=== PATIENT | male | born 1995 | race Caucasian/White ===

== ENCOUNTER 2017-12-11 18:22 | Inpatient (IN) ==
[2017-12-11 18:47] LABS: Bilirubin,Urine Negative (Negative); Blood,Urine Negative (Negative); Clarity,Urine Clear (Clear); Color,Urine Yellow (Yellow); Glucose,Urine (UA) Normal (Normal); Ketones,Urine Negative (Negative); Leukocyte Esterase,Urine Negative (Negative); Nitrite,Urine Negative (Negative); Protein,Urine Negative (Neg-Trace); Specific Gravity,Urine 1.012 (1.010-1.025); Urobilinogen,Urine Normal (Normal)
[2017-12-11 18:49] LABS: Basophils # 0.1 K/mcL (0.0-0.2); Basophils % 0.6 %; Eosinophils # 0.2 K/mcL (0.0-0.6); Eosinophils % 1.6 %; Hematocrit 41.8 % (37.5-50.1); Hemoglobin 14.8 g/dL (12.9-16.9); Immature Granulocytes % 0.3 % (0-4); Lymphocytes # 1.1 K/mcL (0.6-4.6); Lymphocytes % 8.8 %; Mean Corpuscular HGB Conc 35.4 g/dL (31.6-35.5); Mean Corpuscular Hemoglobin 30.6 pg (28.0-33.3); Mean Corpuscular Volume 86.5 fL (83.0-100.0); Mean Platelet Volume 9.1 fL (9.4-12.4); Monocytes # 0.3 K/mcL (0.0-1.3); Monocytes % 2.7 %; Neutrophils # 10.6 K/mcL (1.6-8.9); Platelet Count 224 K/mcL (140-400); Red Blood Count 4.83 M/mcL (4.19-5.50); Red Cell Distribution Width 12.3 % (11.5-14.5)
[2017-12-11 18:59] LABS: Amphetamine Screen,Urine Negative ng/mL (Cutoff=1000); Barbiturate Screen,Urine Negative ng/mL (Cutoff=200); Benzodiazepines Screen,Urine Negative ng/mL (Cutoff=200); Cannabinoid Screen,Urine Negative ng/mL (Cutoff = 50); Cocaine Screen,Urine Negative ng/mL (Cutoff= 300); Opiate Screen,Urine Negative ng/mL (Cutoff=300); Phencyclidine Screen,Urine Negative ng/mL (Cutoff=25)
[2017-12-11 19:09] LABS: Acetaminophen < 10 mcg/mL (10-20); BUN/Creatinine Ratio 8 (6-26); Blood Urea Nitrogen 8 mg/dL (6-20); Calcium 9.6 mg/dL (8.6-10.3); Carbon Dioxide 30 mEq/L (23-29); Chloride 103 mEq/L (98-107); Ethanol < 10 mg/dL (Less than 10); Glucose 108 mg/dL (70-105); Osmolality,Calculated 287 (280-300); Potassium 4.1 mEq/L (3.5-5.1); Salicylate < 2.5 mg/dL (15.0-30.0); Sodium 139 mEq/L (136-145); eGFR For African Americans > 60 (> 60); eGFR For Non-African Americans > 60 (> 60)
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
--- NOTE | 2017-12-11 22:09 | Emergency Department Note ---
Disposition Clinical Impression: Suicidal ideation Depression Qualifiers: Depression Type: unspecified Qualified Code(s): F32.9 - Major depressive disorder, single episode, unspecified Disposition: Transfer Psychiatric Hosp Condition: Good Referrals: Chasity Frye MD [Primary Care Provider] - General Adult HPI - General Chief complaint: ED Psychiatric Symptoms Stated complaint: SI Time Seen by Provider: 12/11/17 18:31 Source: patient, family Mode of arrival: ambulatory Limitations: no limitations - History of Present Illness Pain Scale: 7 - Related Data Previous Rx's Medication Instructions Recorded Ondansetron ODT [Zofran ODT] 4 mg SL Q8HR PRN #16 tab.rapdis 07/31/15 Amoxicillin 875 mg PO BID #20 tablet 11/02/15 DiphenhydraMINE [Benadryl] 25 mg PO Q6HR PRN #20 capsule 11/02/15 GuaiFENesin ER [Mucinex] 1,200 mg PO BID #20 tbbp.12hr 11/02/15 Allergies Allergy/AdvReac Type Severity Reaction Status Date / Time No Known Allergies Allergy Verified 11/02/15 15:26 Cardiovascular: Denies: chest pain Respiratory: Denies: dyspnea Psychiatric: Reports: anxiety, depression, suicidal thoughts. Denies: homicidal thoughts, auditory hallucinations, visual hallucinations Past Medical History - Past Medical History Medical history: Reports: no medical history, other Surgical history: Reports: no surgical history Psychiatric history: Reports: anxiety, depression - Social History Smoking Status: Current every day smoker Smokeless Tobacco Status: Yes Alcohol use: Reports: none Drug use: Reports: none Physical Exam - General Limitations: no limitations General appearance: alert, in no apparent distress Course Vital Signs Temperature 98.7 F 12/11/17 18:35 Pulse Rate 77 12/11/17 18:35 Respiratory Rate 16 12/11/17 18:35 Blood Pressure 116/73 12/11/17 18:35 O2 Sat by Pulse Oximetry 97 12/11/17 18:35 Temperature 98.7 F 12/11/17 18:35 Pulse Rate 77 12/11/17 18:35 Respiratory Rate 16 12/11/17 18:35 Blood Pressure 116/73 12/11/17 18:35 O2 Sat by Pulse Oximetry 97 12/11/17 18:35 Oxygen Delivery Oxygen Delivery Room Air Medical Decision Making - Lab Data Result diagrams: 12/11/17 18:40 12/11/17 18:40 Lab Results 12/11/17 12/11/17 12/11/17 Range/Units 18:35 18:35 18:40 WBC 12.3 H (4.3-11.1) K/mcL RBC 4.83 (4.19-5.50) M/mcL Hgb 14.8 (12.9-16.9) g/dL Hct 41.8 (37.5-50.1) % MCV 86.5 (83.0-100.0) fL MCH 30.6 (28.0-33.3) pg MCHC 35.4 (31.6-35.5) g/dL RDW 12.3 (11.5-14.5) % Plt Count 224 (140-400) K/mcL MPV 9.1 L (9.4-12.4) fL Immature Gran % 0.3 (0-4) % Seg Neutrophils % 86.0 % Lymphocytes % 8.8 % Monocytes % 2.7 % Eosinophils % 1.6 % Basophils % 0.6 % Neutrophils # 10.6 H (1.6-8.9) K/mcL Lymphocytes # 1.1 (0.6-4.6) K/mcL Monocytes # 0.3 (0.0-1.3) K/mcL Eosinophils # 0.2 (0.0-0.6) K/mcL Basophils # 0.1 (0.0-0.2) K/mcL Sodium (136-145) mEq/L Potassium (3.5-5.1) mEq/L Chloride (98-107) mEq/L Carbon Dioxide (23-29) mEq/L BUN (6-20) mg/dL Creatinine (0.70-1.30) mg/dL Est GFR ( Amer) (> 60) Est GFR (Non-Af Amer) (> 60) BUN/Creatinine Ratio (6-26) Glucose (70-105) mg/dL Calculated Osmolality (280-300) Calcium (8.6-10.3) mg/dL Urine Color Yellow (Yellow) Urine Clarity Clear (Clear) Urine pH 7.0 (5.0-8.0) pH Units Ur Specific [place] 1.012 (1.010-1.025) Urine Protein Negative (Neg-Trace) mg/dL Urine Glucose (UA) Normal (Normal) mg/dL Urine Ketones Negative (Negative) mg/dL Urine Blood Negative (Negative) Urine Nitrite Negative (Negative) Urine Bilirubin Negative (Negative) Urine Urobilinogen Normal (Normal) mg/dL Ur Leukocyte Esterase Negative (Negative) Salicylates (15.0-30.0) mg/dL Urine Opiates Screen Negative (Zvlwit=324) ng/mL Acetaminophen (10-20) mcg/mL Ur Barbiturates Screen Negative (Sxcdpv=626) ng/mL Ur Phencyclidine Scrn Negative (Cutoff=25) ng/mL Ur Amphetamines Screen Negative (Ehymag=2793) ng/mL U Benzodiazepines Scrn Negative (Tzolyq=966) ng/mL Urine Cocaine Screen Negative (Cutoff= 300) ng/mL U Marijuana (THC) Screen Negative (Cutoff = 50) ng/mL Ethyl Alcohol (Less than 10) mg/dL 12/11/17 Range/Units 18:40 WBC (4.3-11.1) K/mcL RBC (4.19-5.50) M/mcL Hgb (12.9-16.9) g/dL Hct (37.5-50.1) % MCV (83.0-100.0) fL MCH (28.0-33.3) pg MCHC (31.6-35.5) g/dL RDW (11.5-14.5) % Plt Count (140-400) K/mcL MPV (9.4-12.4) fL Immature Gran % (0-4) % Seg Neutrophils % % Lymphocytes % % Monocytes % % Eosinophils % % Basophils % % Neutrophils # (1.6-8.9) K/mcL Lymphocytes # (0.6-4.6) K/mcL Monocytes # (0.0-1.3) K/mcL Eosinophils # (0.0-0.6) K/mcL Basophils # (0.0-0.2) K/mcL Sodium 139 (136-145) mEq/L Potassium 4.1 (3.5-5.1) mEq/L Chloride 103 (98-107) mEq/L Carbon Dioxide 30 H (23-29) mEq/L BUN 8 (6-20) mg/dL Creatinine 0.96 (0.70-1.30) mg/dL Est GFR ( Amer) > 60 (> 60) Est GFR (Non-Af Amer) > 60 (> 60) BUN/Creatinine Ratio 8 (6-26) Glucose 108 H (70-105) mg/dL Calculated Osmolality 287 (280-300) Calcium 9.6 (8.6-10.3) mg/dL Urine Color (Yellow) Urine Clarity (Clear) Urine pH (5.0-8.0) pH Units Ur Specific [place] (1.010-1.025) Urine Protein (Neg-Trace) mg/dL Urine Glucose (UA) (Normal) mg/dL Urine Ketones (Negative) mg/dL Urine Blood (Negative) Urine Nitrite (Negative) Urine Bilirubin (Negative) Urine Urobilinogen (Normal) mg/dL Ur Leukocyte Esterase (Negative) Salicylates < 2.5 L (15.0-30.0) mg/dL Urine Opiates Screen (Cseyiy=898) ng/mL Acetaminophen < 10 L (10-20) mcg/mL Ur Barbiturates Screen (Xbziyx=945) ng/mL Ur Phencyclidine Scrn (Cutoff=25) ng/mL Ur Amphetamines Screen (Pqmawc=3798) ng/mL U Benzodiazepines Scrn (Awgkyr=565) ng/mL Urine Cocaine Screen (Cutoff= 300) ng/mL U Marijuana (THC) Screen (Cutoff = 50) ng/mL Ethyl Alcohol < 10 (Less than 10) mg/dL Attestation Statement - Attestation Attestation: I examined this patient and my medical decision-making was reviewed with the Resident Physician, Dr. Tee. I agree with the documented findings, disposition and treatment plan as described except to the extent set forth below. Patient is a 22-year-old white male with history of depression and anxiety management and outpatient who presents to emergency department today with reported suicidal ideation. Patient has no prior psychiatric hospitalizations and had been on medication for his depression and anxiety which she stopped approximately one year ago to unpleasant side effects. Patient is not currently in any outpatient counseling or therapy. Patient is reporting that he will make attempts to stab himself as plan. I agree with patient's physical exam findings as documented. Vital signs are stable and patient's in no acute distress. Actions were instituted, lab panel was performed as well as urinalysis. Patient 's labs show mild elevation in white count but otherwise within normal limits. Negative tox screen and EtOH. [facility] slip was signed and placed on the patient's chart due to lethality and patient was medically cleared. [facility] was consulate to see the patient. After their evaluation they feel the patient would benefit from inpatient treatment. Patient will be admitted to the [facility] service.
[2017-12-11] MEDS ORDERED: MOM Conc 10 ML UD.LIQ PO PRN (22:43)
[2017-12-11] MEDS ORDERED: hydrOXYzine pamoate 25 MG CAPSULE PO PRN (22:43)
[2017-12-11] MEDS ORDERED: Acetaminophen 325 MG TABLET PO PRN (22:43)
[2017-12-11] MEDS ORDERED: traZODone 50 MG TABLET PO PRN (22:43)
[2017-12-11] MEDS ORDERED: *HR* LORazepam 2 MG/ML VIAL IM PRN (22:43)
[2017-12-11] MEDS ORDERED: *HR* LORazepam 1 MG TABLET PO PRN (22:43)
[2017-12-11] MEDS ORDERED: Haloperidol Lactate 5 MG/ML VIAL IM PRN (22:43)
[2017-12-11] MEDS ORDERED: Mag Hydrox/Al Hydrox/Simeth 30 ML UDC PO PRN (22:43)
[2017-12-11] MEDS ORDERED: Nicotine 2 MG GUM BC PRN (23:49)
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
[2017-12-12] MEDS: Aspirin Enteric Coated 81 MG Tablet PO SCH (13:45)
[2017-12-12] MEDS: FLUOXETINE HCL 20 MG PO SCH (17:46)
[2017-12-12] MEDS: OLANZAPINE 5 MG PO SCH (17:46)
[2017-12-13] MEDS: Aspirin Enteric Coated 81 MG Tablet PO SCH (08:58)
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
[2017-12-13] MEDS: OLANZAPINE 5 MG PO SCH (17:41)
[2017-12-13] MEDS: FLUOXETINE HCL 20 MG PO SCH (17:41)
[2017-12-14 08:22] VITALS: BP 114/71
[2017-12-14] MEDS: Aspirin Enteric Coated 81 MG Tablet PO SCH (08:30)
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
== END 2017-12-14 10:41 | disposition home or self-care (01) | DRG 751 ==
LOC: EMEROO 18:22 → SUATTDRO 22:36 → 1ANU 22:36
PROVIDERS: ADMIT Psychiatry & Neurology Psychiatry; ATTEND Student in an Organized Health Care Education/Training Program